=== PATIENT | male | born 1935 | race Caucasian/White ===

== ENCOUNTER 2018-07-23 08:11 | Day surgery (SDC) | payer OTHER ==
[2018-07-20 15:03] VITALS: BMI 28.6
[2018-07-23 10:39] VITALS: TEMP 98
[2018-07-23 10:47] VITALS: PULSE 81
[2018-07-23 12:22] VITALS: BP 138/64
--- NOTE | 2018-07-25 10:37 | PATH ---
Surgical Pathology Report Patient Name: BRODY ADAM [facility]. Rec. #: [id number] /Age/Gender: 1935 (Age: 82) / M Account: [id number] Location: [facility]-ENDOSCOPY Taken: 07/23/2018 Received: 07/23/2018 Reported: 07/25/2018 Physicians: Chris Loyola M.D. Specimen(s) Received A: BX RIGHT COLON POLYP B: POLYP SIGMOID Clinical History History of colon polyps, adenoma Postoperative diagnosis: Diverticulosis, polyp Final Diagnosis A. COLON, RIGHT, POLYP, POLYPECTOMY: TUBULAR ADENOMA. B. SIGMOID COLON, POLYP, POLYPECTOMY: TUBULAR ADENOMA. Electronically Signed Sera Smith M.D. Gross Description A. Received in formalin, labeled "right colon polyp" are 6 castaneda, irregular portions of soft tissue ranging from 0.2-0.3 cm. in greatest dimension. The specimens are submitted in toto in one cassette. B. Received in formalin, labeled "sigmoid colon polyp" is a castaneda, irregular portion of soft tissue measuring 0.6 cm. in greatest dimension. The specimen is submitted in toto in one cassette. 07/23/201807/23/2018
== END 2018-07-23 11:30 | disposition home or self-care (01) ==
LOC: JASU-ENDO 08:11
PROVIDERS: ATTEND Internal Medicine Gastroenterology
PROC: 0DBN8ZX Excision of Sigmoid Colon, Via Natural or Artificial Opening Endoscopic, Diagnostic (ICD-10-PCS; 2018-07-23)
PROC: 0DBK8ZX Excision of Ascending Colon, Via Natural or Artificial Opening Endoscopic, Diagnostic (ICD-10-PCS; principal; 2018-07-23 09:45)
DX: Z86.010 Personal history of colon polyps (principal); D12.2 Benign neoplasm of ascending colon; D12.5 Benign neoplasm of sigmoid colon; K57.30 Diverticulosis of large intestine without perforation or abscess without bleeding; K64.8 Other hemorrhoids; I25.10 Atherosclerotic heart disease of native coronary artery without angina pectoris; E11.9 Type 2 diabetes mellitus without complications; E78.5 Hyperlipidemia, unspecified; N40.0 Benign prostatic hyperplasia without lower urinary tract symptoms
CPT/HCPCS: 88305-TC

== ENCOUNTER 2021-08-25 19:19 | Emergency (ER) | payer OTHER ==
[2021-08-25 19:27] VITALS: BP 124/68; PULSE 88; TEMP 97.7; BMI 27.7
[2021-08-25] MEDS ORDERED: DIPHTH,PERTUSS(ACELL),TET 0.5 ML DISP.SYRIN IM ONE ×2 (19:57→20:05)
[2021-08-25] MEDS ORDERED: ceFAZolin SODIUM 1 GM VIAL IM ONE (20:27)
[2021-08-25] MEDS ORDERED: ceFAZolin SODIUM 1 GM VIAL ONE (20:35)
== END 2021-08-25 21:43 | disposition home or self-care (01) ==
LOC: JERFT 19:19
PROC: 0HQMXZZ Repair Right Foot Skin, External Approach (ICD-10-PCS; principal; 2021-08-25)
PROC: 3E0234Z Introduction of Serum, Toxoid and Vaccine into Muscle, Percutaneous Approach (ICD-10-PCS; 2021-08-25)
PROC: 3E02329 Introduction of Other Anti-infective into Muscle, Percutaneous Approach (ICD-10-PCS; 2021-08-25)
DX: S92.424B Nondisplaced fracture of distal phalanx of right great toe, initial encounter for open fracture (principal); W20.8XXA Other cause of strike by thrown, projected or falling object, initial encounter
CPT/HCPCS: 12011-25; 73630-TC-RT-FY; 90471; 90715; 96374; 96375; 99284-25

== ENCOUNTER 2022-06-22 07:03 | Day surgery (SDC) | payer OTHER ==
[2022-06-21 12:10] VITALS: BMI 27.4
[2022-06-22] MEDS ORDERED: ACETAMINOPHEN 325 MG TABLET (FP) PO PRN (08:31)
[2022-06-22] MEDS ORDERED: PROPOFOL 20 ML ONE (08:38)
[2022-06-22] MEDS ORDERED: ONDANSETRON 4 MG/2 ML VIAL ONE (08:45)
[2022-06-22] MEDS ORDERED: LACTATED RINGERS SOLUTION 1,000 ML IV SCH (08:45)
[2022-06-22 09:23] VITALS: TEMP 97.6
[2022-06-22 09:39] VITALS: BP 115/62; PULSE 70; RESP 16
== END 2022-06-22 10:02 | disposition home or self-care (01) ==
LOC: FASU 07:03
PROVIDERS: ATTEND Orthopaedic Surgery Hand Surgery
PROC: 01N50ZZ Release Median Nerve, Open Approach (ICD-10-PCS; principal; 2022-06-22 08:46)
DX: G56.01 Carpal tunnel syndrome, right upper limb (principal)
CPT/HCPCS: 82962

== ENCOUNTER 2022-12-05 11:50 | Emergency (ER) | payer OTHER ==
[2022-12-05 12:19] VITALS: RESP 18; BMI 27.7
[2022-12-05 13:34] LABS: EPI CELLS 1 /uL (0-25.1); HYALINE CASTS 0 /uL (0-3.1); PH,URINE 5.5 (5.0-8.0); URINE APPEARANCE TURBID; URINE BILIRUBIN NEGATIVE (NEGATIVE); URINE COLOR RED; URINE GLUCOSE (UA) NEGATIVE (NEGATIVE); URINE KETONE NEGATIVE (NEGATIVE); URINE LEUK ESTERASE 1+ (NEGATIVE); URINE NITRITE POSITIVE (NEGATIVE); URINE PROTEIN 3+ (NEGATIVE); URINE UROBILINOGEN 0.2 mg/dL (0.2-1.0); URINE WBC 12 /uL (0-25.8)
[2022-12-05 13:34] LABS: BASO % 1.1 % (0-2.0); EOS % 4.9 % (0-4.5); HEMATOCRIT 38.6 % (35.4-49); HEMOGLOBIN 13.3 GM/dL (11.7-16.9); LYMPH % 31.5 % (8-40); MCH 30.9 pg (25.7-33.7); MCHC 34.3 g/dl (32.0-35.9); MEAN CELL VOLUME 90.2 fl (80-96); MEAN PLT VOLUME 7.9 fl (7.5-11.1); MONO % 7.4 % (3.8-10.2); NEUT % 55.1 % (42.8-82.8); PLATELET COUNT 319 10^3/uL (134-434); RBC 4.28 M/mm3 (4.00-5.60); RDW 13.5 % (11.9-15.9); WHITE BLOOD COUNT 10.2 K/mm3 (4.0-10.0)
[2022-12-05 13:36] LABS: URINE BACTERIA 0 /uL (0-1359); URINE RBC 8577 /uL (0-23.9)
[2022-12-05 13:41] LABS: INR 1.05 (0.83-1.09); PROTHROMBIN TIME (PATIENT) 12.2 SEC (9.7-13.0)
[2022-12-05 13:43] LABS: ACTIVATED PTT 30.9 SECONDS (25.2-36.5)
[2022-12-05 14:05] LABS: POTASSIUM 4.6 mmol/L (3.5-5.1)
[2022-12-05 14:07] LABS: CALCIUM 8.8 mg/dL (8.5-10.1)
[2022-12-05 14:08] LABS: ALBUMIN 3.5 g/dl (3.4-5.0); BLOOD UREA NITROGEN 16.6 mg/dL (7-18)
[2022-12-05 14:13] LABS: BILIRUBIN,TOTAL 0.5 mg/dL (0.2-1)
[2022-12-05 17:49] VITALS: BP 147/64; PULSE 77; TEMP 97.7
== END 2022-12-05 19:01 | disposition home or self-care (01) ==
LOC: JER 11:50
DX: R31.9 Hematuria, unspecified (principal); Z20.822 Contact with and (suspected) exposure to COVID-19
CPT/HCPCS: 0241U-QW; 36415; 74176-TC; 76775-TC; 76856-TC; 80053; 81003; 82550; 85025; 85610; 85730; 86850; 86900; 86901; 87086; 99285-25

== ENCOUNTER 2024-03-31 11:08 | Inpatient (IN) | payer OTHER ==
[2024-03-31 12:21] LABS: BASO % 1.1 % (0-2.0); EOS % 6.2 % (0-4.5); HEMATOCRIT 37.8 % (35.4-49); HEMOGLOBIN 12.7 GM/dL (11.7-16.9); LYMPH % 32.5 % (8-40); MCH 30.8 pg (25.7-33.7); MCHC 33.7 g/dl (32.0-35.9); MEAN CELL VOLUME 91.5 fl (80-96); MEAN PLT VOLUME 6.8 fl (7.5-11.1); MONO % 7.9 % (3.8-10.2); NEUT % 52.3 % (42.8-82.8); PLATELET COUNT 313 10^3/uL (134-434); RBC 4.13 M/mm3 (4.00-5.60)
[2024-03-31 12:26] LABS: INR 0.99 (0.83-1.09); PROTHROMBIN TIME (PATIENT) 11.4 SEC (9.7-13.0)
[2024-03-31] MEDS: SODIUM CHLORIDE 1,000 ML IV SCH (12:27)
[2024-03-31 12:29] LABS: ACTIVATED PTT 33.8 SECONDS (25.2-36.5)
[2024-03-31 12:39] LABS: ALBUMIN 3.5 g/dl (3.4-5.0)
[2024-03-31 12:40] LABS: BLOOD UREA NITROGEN 16.8 mg/dL (7-18)
[2024-03-31 12:45] LABS: BILIRUBIN,TOTAL 0.4 mg/dL (0.2-1)
[2024-03-31 14:31] LABS: EPI CELLS 0 /uL (0-25.1); HYALINE CASTS 0 /uL (0-3.1); URINE APPEARANCE CLEAR; URINE BACTERIA 2392 /uL (0-1359); URINE BILIRUBIN NEGATIVE (NEGATIVE); URINE COLOR YELLOW; URINE GLUCOSE (UA) NEGATIVE (NEGATIVE); URINE KETONE NEGATIVE (NEGATIVE); URINE LEUK ESTERASE 3+ (NEGATIVE); URINE NITRITE NEGATIVE (NEGATIVE); URINE PROTEIN NEGATIVE (NEGATIVE); URINE RBC 28 /uL (0-23.9); URINE UROBILINOGEN 0.2 mg/dL (0.2-1.0); URINE WBC 795 /uL (0-25.8)
[2024-03-31] MEDS ORDERED: CLOPIDOGREL BISULFATE 75 MG TABLET (FP) ONE (15:35)
[2024-03-31] MEDS ORDERED: ATORVASTATIN CA 40 MG TABLET (FP) ONE (15:35)
[2024-03-31] MEDS ORDERED: ASPIRIN 81 MG CHEWABLE TABLETS ONE (15:36)
[2024-03-31] MEDS: CLOPIDOGREL BISULFATE 75 MG TABLET (FP) PO ONE (15:47)
[2024-03-31] MEDS: ASPIRIN 81 MG CHEWABLE TABLETS PO ONE (15:47)
[2024-03-31] MEDS: ATORVASTATIN CA 40 MG TABLET (FP) PO ONE (15:47)
[2024-03-31 15:55] LABS: EPI CELLS 1 /uL (0-25.1); HYALINE CASTS 0 /uL (0-3.1); PH,URINE 6.5 (5.0-8.0); URINE APPEARANCE CLEAR; URINE BACTERIA 2467 /uL (0-1359); URINE BILIRUBIN NEGATIVE (NEGATIVE); URINE COLOR YELLOW; URINE GLUCOSE (UA) NEGATIVE (NEGATIVE); URINE KETONE NEGATIVE (NEGATIVE); URINE LEUK ESTERASE 3+ (NEGATIVE); URINE NITRITE NEGATIVE (NEGATIVE); URINE PROTEIN NEGATIVE (NEGATIVE); URINE RBC 24 /uL (0-23.9); URINE UROBILINOGEN 0.2 mg/dL (0.2-1.0); URINE WBC 647 /uL (0-25.8)
[2024-03-31 16:54] VITALS: BMI 28.0
[2024-03-31] MEDS: DEXTROSE 5%-0.45% SALINE 1,000 ML IV SCH (21:14)
[2024-03-31] MEDS: ATORVASTATIN CA 20 MG TABLET (FP) PO SCH (21:15)
[2024-03-31] MEDS: HEPARIN NA (PORCINE) 5,000 UNITS/ML 1ML VIAL SQ SCH (21:15)
[2024-04-01] MEDS: metFORMIN HCL 500 MG TABLET (FP) PO SCH (06:05)
[2024-04-01] MEDS ORDERED: MECLIZINE HCL 25 MG TABLET (FP) PO PRN (09:02)
[2024-04-01 09:35] LABS: POTASSIUM 4.7 mmol/L (3.5-5.1)
[2024-04-01 09:37] LABS: ALBUMIN 3.6 g/dl (3.4-5.0); CALCIUM 8.9 mg/dL (8.5-10.1)
[2024-04-01 09:38] LABS: BLOOD UREA NITROGEN 15.6 mg/dL (7-18)
[2024-04-01 09:41] LABS: CREATININE 1.2 mg/dL (0.55-1.3)
[2024-04-01 09:42] LABS: BILIRUBIN,TOTAL 0.6 mg/dL (0.2-1); TOT PROT 7.2 g/dl (6.4-8.2)
[2024-04-01] MEDS: TAMSULOSIN HCL 0.4 MG CAP PO SCH (09:55)
[2024-04-01 10:12] LABS: BASO % 0.6 % (0-2.0); EOS % 1.8 % (0-4.5); HEMATOCRIT 37.9 % (35.4-49); HEMOGLOBIN 12.9 GM/dL (11.7-16.9); LYMPH % 20.1 % (8-40); MCH 30.8 pg (25.7-33.7); MEAN CELL VOLUME 90.7 fl (80-96); MEAN PLT VOLUME 7.1 fl (7.5-11.1); MONO % 5.7 % (3.8-10.2); NEUT % 71.8 % (42.8-82.8); PLATELET COUNT 326 10^3/uL (134-434); RBC 4.19 M/mm3 (4.00-5.60); RDW 13.8 % (11.9-15.9); WHITE BLOOD COUNT 11.6 K/mm3 (4.0-10.0)
[2024-04-01] MEDS: LISINOPRIL 10 MG TABLET PO SCH (10:31)
[2024-04-01] MEDS: ASPIRIN 81 MG CHEWABLE TABLETS PO SCH (10:36)
[2024-04-01] MEDS: VANCOMYCIN/WATER FOR INJ (PEG) 1,000 MG/200 ML BAG IVPB ONE (11:55)
[2024-04-02] MEDS: TAMSULOSIN HCL 0.4 MG CAP PO SCH (09:28)
[2024-04-02] MEDS: NITROFURANTOIN MONOHYD/M-CRYST 100 MG CAPSULE PO SCH (21:52)
[2024-04-03 01:57] VITALS: RESP 18
[2024-04-03 07:17] LABS: BASO % 0.8 % (0-2.0); EOS % 6.2 % (0-4.5); HEMATOCRIT 35.6 % (35.4-49); HEMOGLOBIN 11.9 GM/dL (11.7-16.9); LYMPH % 28.1 % (8-40); MCH 30.9 pg (25.7-33.7); MCHC 33.6 g/dl (32.0-35.9); MEAN PLT VOLUME 6.8 fl (7.5-11.1); MONO % 10.1 % (3.8-10.2); NEUT % 54.8 % (42.8-82.8); PLATELET COUNT 267 10^3/uL (134-434); RBC 3.87 M/mm3 (4.00-5.60); RDW 14.1 % (11.9-15.9); WHITE BLOOD COUNT 9.6 K/mm3 (4.0-10.0)
[2024-04-03 07:39] LABS: ALBUMIN 3.1 g/dl (3.4-5.0); CALCIUM 8.7 mg/dL (8.5-10.1)
[2024-04-03 07:41] LABS: BLOOD UREA NITROGEN 16.8 mg/dL (7-18)
[2024-04-03 07:45] LABS: BILIRUBIN,TOTAL 0.5 mg/dL (0.2-1); TOT PROT 6.2 g/dl (6.4-8.2)
[2024-04-03 18:07] VITALS: BP 121/56; PULSE 73; TEMP 98.1
== END 2024-04-03 19:06 | disposition home or self-care (01) | DRG 149 ==
LOC: JER 11:08 → JERBED 15:01 → J4S 15:56 → OBSVTOIN 20:06
PROVIDERS: ADMIT Family Medicine; ATTEND Family Medicine
DX: R42 Dizziness and giddiness (principal); J90 Pleural effusion, not elsewhere classified; N39.0 Urinary tract infection, site not specified; I10 Essential (primary) hypertension; E11.9 Type 2 diabetes mellitus without complications; I25.10 Atherosclerotic heart disease of native coronary artery without angina pectoris; E78.00 Pure hypercholesterolemia, unspecified; E78.5 Hyperlipidemia, unspecified; N40.1 Benign prostatic hyperplasia with lower urinary tract symptoms; R33.9 Retention of urine, unspecified
CPT/HCPCS: 36415; 70450-TC; 70496-TC; 70498-TC; 70551-TC; 71045-TC-FY; 80053; 80061; 81003; 82550; 82607; 82962; 83036; 84443; 84484; 85025; 85610; 85730; 86850; 86900; 86901; 87086; 87186; 93005; 93010; 93306-TC; 93880-TC; 97116-GP; 97161-GP; 99285-25; G0378; J1644